=== PATIENT | female | born 1990 | race Hispanic/Latino ===

== ENCOUNTER 2018-12-21 08:21 | Emergency (ER) | payer SELFPAY ==
--- NOTE | 2018-12-21 08:23 | ED.GENADULT ---
HPI - General Adult General Chief complaint: Abdominal Pain Stated complaint: stomach pain into back,vomiting,black stool Time Seen by Provider: 12/21/18 08:22 Source: patient Mode of arrival: Ambulatory Limitations: no limitations History of Present Illness HPI narrative: 28-year-old female here for evaluation of multiple symptoms. She states that for the past 10 years she has woken up with nausea and vomiting. She also states that over the past day or so she now has lower back pain and also had some blood streaked in her vomit yesterday and some dark-colored stools. States she has had this in the past but not recently. Has never had a colonoscopy or an endoscopy. States that she has talk with her primary doctor has been started on omeprazole however she no longer takes this medication because she states that did not help very much with her symptoms. Her primary doctor who has seen her in the past for this has since retired. She is not establish care with a new provider. No prior abdominal surgeries. States she did have some vomiting this morning. No vaginal bleeding. No urinary symptoms. Related Data Previous Rx's Medication Instructions Recorded betamethasone dipropionate 0.05 % 1 applictn TOP BID #15 gram 11/14/17 topical ointment Allergies Allergy/AdvReac Type Severity Reaction Status Date / Time No Known Drug Allergies Allergy Verified 11/14/17 10:08 Review of Systems Constitutional Constitutional: Denies fatigue and Denies fever(s) Cardiovascular Cardiovascular: Denies chest pain and Denies dyspnea Respiratory Respiratory: Denies dyspnea Gastrointestinal Gastrointestinal: Reports abdominal pain, Reports diarrhea, Reports nausea and Reports vomiting Comments: Dark colored stool Genitourinary Genitourinary: Denies dysuria and Denies pelvic pain Musculoskeletal Musculoskeletal: Reports back pain (Lower back pain), Denies myalgias and Denies arthralgias Integumentary/Breasts Skin/Breast: Denies lesions and Denies rash Neurologic Neurologic: Denies behavioral changes Psychiatric Psychiatric: Denies behavioral changes Endocrine Endocrine: Denies fatigue Hematologic/Lymphatic Hematologic/Lymphatic: Denies easy bleeding and Denies easy bruising PFSH Medical History Folliculitis (Inactive) Social History Smoking Status: Current some day smoker Social History Smoking Status: Current some day smoker Exam Initial Vital Signs Initial Vital Signs: Vital Signs Temperature 97.9 F 12/21/18 08:27 Pulse Rate 78 12/21/18 08:27 Respiratory Rate 16 12/21/18 08:27 Blood Pressure 128/79 12/21/18 08:27 Pulse Oximetry 97 12/21/18 08:27 Const General: cooperative, comfortable, well developed and well groomed Orientation: alert, awake and oriented x3 HENMT Head: normal to inspection and normocephalic Resp Effort & Inspection: normal respiratory effort Auscultation: clear to auscultation bilaterally Cardio Rate: regular rate Rhythm: regular rhythm GI Inspection: non-distended Palpation: soft, No firm and tender (Lower abdomen) Rectal Exam: visual inspection normal, normal sphincter tone and heme negative stool Back/Spine/Pelvis Back: No CVA tenderness Skin Lesions: no lesions Rashes: no rashes Neuro General: alert and awake Cognition: normal cognition Speech: speech normal Motor: muscle tone normal throughout Extrem General: capillary refill normal and No edema Psych Appearance: grossly normal and well kempt Course Orders Ordered: ED Orders 12/21/18 08:48 CT abdomen pelvis w con Stat Urine Microscopic Stat 12/21/18 08:50 Complete Blood Count AUTO DIFF Stat Comprehensive Metabolic Panel Stat Lipase Stat Partial Thromboplastin Time Stat Prothrombin Time INR Stat Discontinued Medications Sodium Chloride (Normal Saline 0.9%) 1,000 mls @ 1,000 mls/hr IV BOLUS ONE Stop: 12/21/18 09:31 Last Infusion: 12/21/18 09:56 Dose: 0 mls/hr Documented by: Admin: 12/21/18 08:46 Dose: 1,000 mls/hr Documented by: FRANCA Pantoprazole Sodium (Protonix) 40 mg IV NOW ONE Stop: 12/21/18 08:33 Last Admin: 12/21/18 08:46 Dose: 40 mg Documented by: FRANCA Vital Signs Vital signs: Vital Signs - 8 hr 12/21/18 08:27 12/21/18 09:29 Temperature 97.9 F Pulse Rate 78 62 Respiratory Rate 16 16 Blood Pressure 128/79 Blood Pressure [Left Arm] 117/85 Pulse Oximetry 97 100 Medical Decision Making Lab Data Lab results reviewed: Yes I reviewed the patient's lab results. Result diagrams: 12/21/18 08:50 12/21/18 08:50 Labs: Lab Results 12/21/18 12/21/18 12/21/18 Range/Units 08:48 08:50 08:50 WBC 7.6 (4.5-11.0) X10^3/uL RBC 4.61 (4.0-5.2) X10^6/uL Hgb 14.9 (12.0-16.0) g/dL Hct 43.3 (36-46) % MCV 94.0 (80-100) fL MCH 32.3 (26-34) PG MCHC 34.4 (30-36) % RDW 12.8 (11.6-14.8) % Plt Count 275 (150-400) X10^3/uL Neut % (Auto) 63.1 (50-75) % Lymph % (Auto) 24.8 L (25-40) % Gem % (Auto) 10.6 (3-14) % Eos % (Auto) 1.2 L (2-4) % Baso % (Auto) 0.3 (0-2) % Neut # (Auto) 4800 (3743-1991) /uL Lymph # (Auto) 1900 (0659-2694) /uL Gem # (Auto) 800 (0-900) /uL Eos # (Auto) 100 (0-450) /uL Baso # (Auto) 0 (0-100) /uL PT 11.9 (10.1-12.7) SECONDS INR 1.0 (0.9-1.3) APTT 39 H (26.4-36.2) SECONDS Sodium (137-145) mmol/L Potassium (3.4-5.1) mmol/L Chloride (98-107) mmol/L Carbon Dioxide (22-32) mmol/L BUN (7-17) mg/dL Creatinine (0.52-1.04) mg/dL Estimated GFR (>60) mL/min BUN/Creatinine Ratio (6-22) Glucose (70-100) mg/dL Calcium (8.4-10.2) mg/dL Total Bilirubin (0.2-1.3) mg/dL AST (14-36) IU/L ALT (9-52) IU/L Alkaline Phosphatase (38-126) U/L Total Protein (6.3-8.2) g/dL Albumin (3.5-5.0) g/dL Globulin (1.7-4.1) g/dL Albumin/Globulin Ratio (1.0-2.8) Lipase (23-300) U/L Urine RBC 1-5/hpf (0-5/HPF) Urine WBC 0-1/hpf (0-5/HPF) Ur Squamous Epith Cells 5-10 /hpf H (0-5/HPF) Urine Bacteria Few (2-10) H (None) Urine Mucus 1+ H (Negative) Ur Culture Indicated? Cult not indicated 12/21/18 Range/Units 08:50 WBC (4.5-11.0) X10^3/uL RBC (4.0-5.2) X10^6/uL Hgb (12.0-16.0) g/dL Hct (36-46) % MCV (80-100) fL MCH (26-34) PG MCHC (30-36) % RDW (11.6-14.8) % Plt Count (150-400) X10^3/uL Neut % (Auto) (50-75) % Lymph % (Auto) (25-40) % Gem % (Auto) (3-14) % Eos % (Auto) (2-4) % Baso % (Auto) (0-2) % Neut # (Auto) (2448-2283) /uL Lymph # (Auto) (8745-7713) /uL Gem # (Auto) (0-900) /uL Eos # (Auto) (0-450) /uL Baso # (Auto) (0-100) /uL PT (10.1-12.7) SECONDS INR (0.9-1.3) APTT (26.4-36.2) SECONDS Sodium 141 (137-145) mmol/L Potassium 3.9 (3.4-5.1) mmol/L Chloride 103 (98-107) mmol/L Carbon Dioxide 28 (22-32) mmol/L BUN 9 (7-17) mg/dL Creatinine 0.60 (0.52-1.04) mg/dL Estimated GFR > 60.0 (>60) mL/min BUN/Creatinine Ratio 15.0 (6-22) Glucose 104 H (70-100) mg/dL Calcium 9.6 (8.4-10.2) mg/dL Total Bilirubin 0.6 (0.2-1.3) mg/dL AST 75 H (14-36) IU/L ALT 145 H (9-52) IU/L Alkaline Phosphatase 93 (38-126) U/L Total Protein 7.3 (6.3-8.2) g/dL Albumin 4.5 (3.5-5.0) g/dL Globulin 2.8 (1.7-4.1) g/dL Albumin/Globulin Ratio 1.6 (1.0-2.8) Lipase 36 (23-300) U/L Urine RBC (0-5/HPF) Urine WBC (0-5/HPF) Ur Squamous Epith Cells (0-5/HPF) Urine Bacteria (None) Urine Mucus (Negative) Ur Culture Indicated? Point of Care Testing Test Results Negative Stool Occult Blood Negative Urine Dip Bedside Urine Glucose Negative Bedside Urine Bilirubin + 1 Bedside Urine Ketone - Negative Urine Specific [place] 1.020 Bedside Urine Occult Blood - Negative Bedside Urine pH 6.0 Bedside Urine Protein + 30 Bedside Urine Urobilinogen - Negative Bedside Urine Nitrite - Negative Bedside Urine Leukocytes - Negative Esterase Point of care testing: Point of Care Testing Test Results Negative Stool Occult Blood Negative Urine Dip Bedside Urine Glucose Negative Bedside Urine Bilirubin + 1 Bedside Urine Ketone - Negative Urine Specific [place] 1.020 Bedside Urine Occult Blood - Negative Bedside Urine pH 6.0 Bedside Urine Protein + 30 Bedside Urine Urobilinogen - Negative Bedside Urine Nitrite - Negative Bedside Urine Leukocytes - Negative Esterase Imaging Data CT scan - abdomen: Radiologist's impression: [place] [address] CT Scan Report Signed Patient: Karina Mcleod [facility]#: [id number] : 1990Acct:[id number] Age/Sex: FDate of Service: 12/21/18 Loc: ED Accession Number: [id number] Procedure: CT abdomen pelvis w con Ordering Provider: Azam Sanders D.O. PROCEDURE: CT ABDOMEN PELVIS W CON INDICATIONS: Lower abd pain with rectal bleeding TECHNIQUE: After the administration of oral and intravenous contrast, 5 mm thick sections acquired from the diaphragms to the symphysis. 5 mm thick coronal and sagittal reformats were performed. For radiation dose reduction, the following was used: automated exposure control, adjustment of mA and/or kV according to patient size. COMPARISON: None. FINDINGS: Image quality: Diagnostic. ABDOMEN: Lung bases: Lung bases are clear. Heart size is normal. Solid organs: The liver is profoundly hypodense when compared to the spleen. Areas of normal density appear to be present within the region of the gallbladder fossa. No definable liver lesion is appreciated. The portal and hepatic veins appear to be patent. There is no intrahepatic or extrahepatic biliary dilatation. The gallbladder is not inflamed. The spleen and adrenals are within normal limits. The pancreas is unremarkable. Both kidneys are normal in size. There is no hydronephrosis or definite nephrolithiasis. Peritoneum and bowel: The stomach and duodenum are within normal limits. The small bowel loops are nondilated. Moderate thickening involving the wall of the terminal ileum and proximal colon are present. There may be additional areas of mild wall thickening involving other portions of the colon. No bowel obstruction is identified. The appendix is measuring within the upper limits of normal for size at approximately 6-7 mm. There is edema identified within the mesentery of the ileocecal region. A small amount free fluid within the right paracolic gutter is present. There is no loculated fluid collection or free air. Nodes and vessels: No retroperitoneal or mesenteric adenopathy. The rectum and multiple similar sized subcentimeter ileocolic lymph nodes are incidentally noted. Aorta and inferior vena cava are normal in caliber. Bones: No acute fracture or suspicious osseous lesion is evident. PELVIS: Genitourinary: Bladder wall thickness is normal. The uterus is normal in size. The ovaries are slightly prominent bilaterally without a large cystic lesion evident. Miscellaneous: No inguinal hernias or adenopathy. A small amount of free fluid is seen within the pelvis. There is no loculated fluid collection or free air. Bones: No suspicious bony lesions. No acute pelvic fracture is evident. IMPRESSION: 1. Mild right lower quadrant mesenteric edema probably is related to an inflammatory or infectious process involving the terminal ileum and adjacent proximal colon, such as infectious ileocolitis versus Crohn's disease/ulcerative colitis. The possibility of superimposed early appendicitis is difficult to exclude. Please correlate clinically. 2. No bowel obstruction. 3. Prominent hepatic steatosis. 4. Nonspecific prominence of the ovaries without a large cystic or solid lesion. Dictated by: Héctor Borrego M.D. on 12/21/2018 at 8:49 Approved by: Héctor Borrego M.D. on 12/21/2018 at 8:54 [facility] Narrative Medical decision making narrative: Patient with no surgical findings on the CT scan. She has never had a colonoscopy which given the CT scan findings is warranted in this case. Do not feel that this needs to happen emergently. She is Hemoccult negative. She is stable. His relatively benign abdominal exam. No indication for antibiotics. Will hold on further workup for now. Patient was informed that she should make contact with her new primary provider to get an EGD and a colonoscopy. She is going to start on Zantac. She was given return precautions and follow-up instructions. She expressed understanding and agreement plan. Discharge Plan Departure Patient Disposition: Home Clinical Impression: Abdominal pain Qualifiers: Abdominal location: lower abdomen, unspecified Qualified Code(s): R10.30 - Lower abdominal pain, unspecified Instructions: DI for Abdominal Pain-Adult Activity Restrictions/Additional Instructions: I recommend that today you contact the [facility] at [phone] to establish care with a new provider. If for some reason they are unable to see you can contact [phone] help you establish another primary provider here in the area. I recommend that you start taking Zantac or the generic version this medication. You can buy this [id number]. You do need further workup to include possibly a endoscopy and colonoscopy. Return to the emergency department for any new symptoms. Prescriptions: No Action betamethasone dipropionate 0.05 % ointment 1 applictn TOP BID Qty: 15 RF: 0
[2018-12-21 08:27] VITALS: BP 128/79; PULSE 78; RESP 16; TEMP 36.6; O2SAT 97; BMI 31.3
[2018-12-21] MEDS: SODIUM CHLORIDE 0.9% 1,000 ML 1000 ML IV (08:46)
[2018-12-21] MEDS: PANTOPRAZOLE 40 MG VIAL IV (08:46)
--- NOTE | 2018-12-21 08:48 | DI.CT.S_ITS ---
PROCEDURE: CT ABDOMEN PELVIS W CON INDICATIONS: Lower abd pain with rectal bleeding TECHNIQUE: After the administration of oral and intravenous contrast, 5 mm thick sections acquired from the diaphragms to the symphysis. 5 mm thick coronal and sagittal reformats were performed. For radiation dose reduction, the following was used: automated exposure control, adjustment of mA and/or kV according to patient size. COMPARISON: None. FINDINGS: Image quality: Diagnostic. ABDOMEN: Lung bases: Lung bases are clear. Heart size is normal. Solid organs: The liver is profoundly hypodense when compared to the spleen. Areas of normal density appear to be present within the region of the gallbladder fossa. No definable liver lesion is appreciated. The portal and hepatic veins appear to be patent. There is no intrahepatic or extrahepatic biliary dilatation. The gallbladder is not inflamed. The spleen and adrenals are within normal limits. The pancreas is unremarkable. Both kidneys are normal in size. There is no hydronephrosis or definite nephrolithiasis. Peritoneum and bowel: The stomach and duodenum are within normal limits. The small bowel loops are nondilated. Moderate thickening involving the wall of the terminal ileum and proximal colon are present. There may be additional areas of mild wall thickening involving other portions of the colon. No bowel obstruction is identified. The appendix is measuring within the upper limits of normal for size at approximately 6-7 mm. There is edema identified within the mesentery of the ileocecal region. A small amount free fluid within the right paracolic gutter is present. There is no loculated fluid collection or free air. Nodes and vessels: No retroperitoneal or mesenteric adenopathy. The rectum and multiple similar sized subcentimeter ileocolic lymph nodes are incidentally noted. Aorta and inferior vena cava are normal in caliber. Bones: No acute fracture or suspicious osseous lesion is evident. PELVIS: Genitourinary: Bladder wall thickness is normal. The uterus is normal in size. The ovaries are slightly prominent bilaterally without a large cystic lesion evident. Miscellaneous: No inguinal hernias or adenopathy. A small amount of free fluid is seen within the pelvis. There is no loculated fluid collection or free air. Bones: No suspicious bony lesions. No acute pelvic fracture is evident. IMPRESSION: 1. Mild right lower quadrant mesenteric edema probably is related to an inflammatory or infectious process involving the terminal ileum and adjacent proximal colon, such as infectious ileocolitis versus Crohn's disease/ulcerative colitis. The possibility of superimposed early appendicitis is difficult to exclude. Please correlate clinically. 2. No bowel obstruction. 3. Prominent hepatic steatosis. 4. Nonspecific prominence of the ovaries without a large cystic or solid lesion. Dictated by: Héctor Borrego M.D. on 12/21/2018 at 8:49 Approved by: Héctor Borrego M.D. on 12/21/2018 at 8:54
[2018-12-21 08:58] LABS: Bacteria Urine Few (2-10); Culture Indicated Urine Cult Not Indicated; Mucus Urine 1+ (Negative); RBC Urine 1-5/HPF (0-5/HPF); Squamous Epithelial Cell Urine 5-10 /HPF (0-5/HPF); WBC Urine 0-1/HPF (0-5/HPF)
[2018-12-21 09:14] LABS: Add Manual Diff / Slide Review NO; Basophils Absolute Auto 0 /uL (0-100); Basophils Percent Auto 0.3 % (0-2); Eosinophils Absolute Auto 100 /uL (0-450); Eosinophils Percent Auto 1.2 % (2-4); Hematocrit 43.3 % (36-46); Hemoglobin 14.9 g/dL (12.0-16.0); Lymphocytes Absolute Auto 1900 /uL (1100-4500); Lymphocytes Percent Auto 24.8 % (25-40); Mean Corpuscular HGB Conc 34.4 % (30-36); Mean Corpuscular Hemoglobin 32.3 PG (26-34); Monocytes Absolute Auto 800 /uL (0-900); Monocytes Percent Auto 10.6 % (3-14); Neutrophils Absolute Auto 4800 /uL (1500-7000); Neutrophils Percent Auto 63.1 % (50-75); Platelet Count 275 X10^3/uL (150-400); Red Blood Cell Count 4.61 X10^6/uL (4.0-5.2); Red Cell Distribution Width 12.8 % (11.6-14.8); White Blood Cell Count 7.6 X10^3/uL (4.5-11.0)
[2018-12-21 09:17] LABS: Prothrombin Time 11.9 SECONDS (10.1-12.7)
[2018-12-21 09:19] LABS: PTT Partial Thromboplastin Tim 39 SECONDS (26.4-36.2)
[2018-12-21 09:21] LABS: Alanine Aminotransferase 145 IU/L (9-52); Albumin 4.5 g/dL (3.5-5.0); Albumin Globulin Ratio 1.6 (1.0-2.8); Alkaline Phosphatase 93 U/L (38-126); Aspartate Aminotransferase 75 IU/L (14-36); Bilirubin Total 0.6 mg/dL (0.2-1.3); Blood Urea Nitrogen 9 mg/dL (7-17); Calcium 9.6 mg/dL (8.4-10.2); Carbon Dioxide 28 mmol/L (22-32); Chloride 103 mmol/L (98-107); Estimated Glomerular Filt Rate > 60.0 mL/min (>60); Globulin 2.8 g/dL (1.7-4.1); Glucose 104 mg/dL (70-100); HEMOLYSIS < 15 (0-50); Lipase 36 U/L (23-300); Potassium 3.9 mmol/L (3.4-5.1); Sodium 141 mmol/L (137-145); Total Protein 7.3 g/dL (6.3-8.2)
[2018-12-21 09:29] VITALS: BP 117/85; PULSE 62; RESP 16; O2SAT 100
[2018-12-21 11:05] VITALS: BP 140/85; PULSE 61; RESP 16
== END 2018-12-21 11:05 | disposition home or self-care (01) ==
PROVIDERS: Emergency Provider Emergency Medicine
DX: R10.30 Lower abdominal pain, unspecified (principal); K62.5 Hemorrhage of anus and rectum
CPT/HCPCS: 36415; 74177; 80053; 81003; 81015; 81025; 82272; 83690; 85025; 85610; 85730; 96361; 96374; 99283; 99285; C9113; Q9967

== ENCOUNTER 2019-01-12 12:11 | Emergency (ER) | payer OTHER, SELFPAY ==
--- NOTE | 2019-01-12 12:55 | DI.RAD.S_ITS ---
PROCEDURE: XR KNEE RT 3V INDICATIONS: twisted injury 2 days ago TECHNIQUE: 3 views of the knee were acquired. COMPARISON: None. FINDINGS: Bones: No fractures or dislocations. No suspicious bony lesions. Soft tissues: No joint effusion. No suspicious soft tissue calcifications. IMPRESSION: No acute bony abnormality of the right knee. Dictated by: Fernando Lovett M.D. on 01/12/2019 at 13:22 Approved by: Fernando Lovett M.D. on 01/12/2019 at 13:23
[2019-01-12 12:57] VITALS: BP 140/80; PULSE 66; RESP 13; TEMP 36.2; O2SAT 98
--- NOTE | 2019-01-12 13:11 | PC.NURSE ---
pt seen in waiting room at 1220.
--- NOTE | 2019-01-12 13:30 | ED_ITS ---
HPI - Extremity Injury (Lower) <SCOTTIE Metcalf - Last Filed: 01/12/19 23:25> General Chief Complaint: Extremity Injury, Lower Stated Complaint: Fell at work twisted right knee 2 days ago Time Seen by Provider: 01/12/19 13:16 Source: patient Mode of arrival: Ambulatory Limitations: no limitations History of Present Illness HPI Narrative: This is a 28-year-old female, occasional smoker, who presents with significant other with chief complain of right knee pain, lateral and medial to patella. 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 While she was falling she shifted right knee to right and left laterally with all her weight bearing on affected leg. Patient denies falling right on to affected knee. Patient has been using ice pack and knee brace for comfort which has been mildly improving but without this patient reports pain is about 8/10 and pain radiates to above and below to knee. Patient reports ambulation increases her pain but is able to bear weight and has a limping gait. Patient denies injuring the scene knee in the past and injuring her head or any other areas. Patient is not on anticoa gulants at this time. Related Data Previous Rx's Medication Instructions Recorded betamethasone dipropionate 0.05 % 1 applictn TOP BID #15 gram 11/14/17 topical ointment Allergies Allergy/AdvReac Type Severity Reaction Status Date / Time No Known Drug Allergies Allergy Verified 11/14/17 10:08 Review of Systems <SCOTTIE Metcalf - Last Filed: 01/12/19 23:25> Review of Systems Narrative: General: Denies fever, chills, fatigue, malaise, sweats. HEENT: Denies sinus pain, ear pain, sore throat, difficulty swallowing, dizziness. Respiratory: Denies dyspnea, cough, wheezing, hemoptysis, sputum. Cardiovascular: Denies chest pain, palpitations, orthopnea, edema. Gastrointestinal: Denies nausea, vomiting, abdominal pain, diarrhea, constipation, melena. : Denies dysuria, frequency, incontinence, hematuria, urinary retention. Musculoskeletal: See HPI Skin: Denies rash, skin lesions, or other. Neurologic: Denies weakness, headache, numbness, change in speech, confusion, seizures, incoordination. Psychiatric: No concerning psychosocial issues. 12-point review of systems is negative except for those stated above. Patient History <SCOTTIE Metcalf - Last Filed: 01/12/19 23:25> Medical History Folliculitis (Inactive) Social History Smoking Status: Current some day smoker Social History Smoking Status: Current some day smoker alcohol intake frequency: 0-2 drinks per day Substance Use Type: marijuana Exam <SCOTTIE Metcalf - Last Filed: 01/12/19 23:25> Narrative Exam Narrative: General appearance: well developed, well nourished, in no acute distress. Head: normocephalic, atraumatic, no scalp lesions, non-tender. Eye: pupil equal, round. EOMI. Nose: nares patent. Oral: mucosa moist. Neck/Thyroid: neck supple, full range of motion, no visible masses. Skin: no suspicious rashes, lesions over visible areas. Warm and dry. Heart: no clubbing, no cyanosis, no edema. Lungs: Breathing even and unlabored. No stridor. No accessory muscles used. Chest: normal shape and expansion. Abdomen: non-obese, non-distended. Neurologic: alert and oriented. Cognitive exam, SEPARATOR TENDER and PNS grossly intact on informal exam. Psych: good eye contact, normal affect. Initial Vital Signs Initial Vital Signs: Vital Signs Temperature 97.2 F L 01/12/19 12:57 Pulse Rate 66 01/12/19 12:57 Respiratory Rate 13 01/12/19 12:57 Blood Pressure 140/80 01/12/19 12:57 Pulse Oximetry 98 01/12/19 12:57 Extrem Right lower extremity: hip/thigh Details: normal to inspection; no tenderness, knee Details: abnormal to inspection, tenderness, swelling Location: of the patella (Around patella), abnormal ROM Details: pain with passive ROM during Details: in extension and in flexion, knee ligament exam abnormal Details: anterior drawer test normal, posterior drawer test normal and Scarlett's test normal and ecchymosis (light on patella and around ); no abrasions, no lacerations, no crepitus and no unusual warmth, ankle Details: normal to inspection; no tenderness and foot Details: normal to inspection, vascular exam Details: dorsalis pedis pulse present and motor-sensory exam Details: light- touch normal; no tenderness <DO Cammie Becerra Last Filed: 01/16/19 18:17> Initial Vital Signs Initial Vital Signs: Vital Signs Temperature 97.2 F L 01/12/19 12:57 Pulse Rate 66 01/12/19 12:57 Respiratory Rate 13 01/12/19 12:57 Blood Pressure 140/80 01/12/19 12:57 Pulse Oximetry 98 01/12/19 12:57 Procedures <SCOTTIE Metcalf - Last Filed: 01/12/19 23:25> Orthopedic Splinting/Casting Injury #1: Side: right Lower Extremity Injury Location: knee Lower Extremity Immobilizer: knee immobilizer Other Orthopedic Equipment: crutches Post splinting neuro exam: intact Post splinting vascular exam: intact Placed by: Nursing Course <SCOTTIE Metcalf - Last Filed: 01/12/19 23:25> Orders Ordered: Discontinued Medications Acetaminophen (Tylenol) 975 mg PO NOW ONE Stop: 01/12/19 13:29 Last Admin: 01/12/19 13:56 Dose: 975 mg Documented by: KAYLA Vital Signs Vital signs: Vital Signs - 8 hr 01/12/19 12:57 Temperature 97.2 F L Pulse Rate 66 Respiratory Rate 13 Blood Pressure 140/80 Pulse Oximetry 98 <Colette Tyson DO - Last Filed: 01/16/19 18:17> Orders Ordered: Discontinued Medications Acetaminophen (Tylenol) 975 mg PO NOW ONE Stop: 01/12/19 13:29 Last Admin: 01/12/19 13:56 Dose: 975 mg Documented by: STOBEZina Vital Signs Vital signs: Vital Signs - 8 hr 01/12/19 12:57 Temperature 97.2 F L Pulse Rate 66 Respiratory Rate 13 Blood Pressure 140/80 Pulse Oximetry 98 MDM - Extremity Injury (Lower) <SCOTTIE Metcalf Last Filed: 01/12/19 23:25> Differential Diagnosis Differential diagnosis: Likely other (Knee sprain/strain, knee fracture) Medical Records Attestation: I reviewed the patient's medical records. Imaging Data XR-Knee RT: Radiologist's impression: [address] [address] XRay Report Signed Patient: Karina Mcleod [facility]#: [id number] : 1990Acct:[id number] Age/Sex: 28 / FDate of Service: 01/12/19 Loc: ED Accession Number: [id number] Procedure: XR knee RT 3V Ordering Provider: Colette Tyson D.O. PROCEDURE: XR KNEE RT 3V INDICATIONS: twisted injury 2 days ago TECHNIQUE: 3 views of the knee were acquired. COMPARISON: None. FINDINGS: Bones: No fractures or dislocations. No suspicious bony lesions. Soft tissues: No joint effusion. No suspicious soft tissue calcifications. IMPRESSION: No acute bony abnormality of the right knee. Dictated by: Fernando Lovett M.D. on 01/12/2019 at 13:22 Approved by: Fernando Lovett M.D. on 01/12/2019 at 13:23 [facility] Narrative Medical decision making narrative: This is a 28 year female came in to ED after injury to her right knee 2 nights ago at work after she slipped and fall. She reports her knee shifted to the opposite side of her body back and forth for she was falling. Physical exam exhibited mild ecchymosis, edema around the patella. She is able to bear weight but with pain. Neurovascular exam was intact. She was able to move her toes. X-ray shows no acute findings. Knee immobilizer was applied on right knee for comfort and rest and a set of crutches was provided. Crutch teaching was done by nursing staff and patient was able to demonstrate back on proper use. Required work injury document has completed. Return precautions were discussed with the patient and a referral to [facility] orthopedist provided. Patient advised to use [id number] Tylenol and or Motrin as needed for discomfort along RICE therapy. No further questions were expressed and patient agrees with treatment plan. Discharge Plan Departure Patient Disposition: Home Clinical Impression: Right knee sprain Qualifiers: Encounter type: initial encounter Involved ligament of knee: unspecified ligament Qualified Code(s): S83.91XA - Sprain of unspecified site of right knee, initial encounter Discharge Date/Time: 01/12/19 15:16 Instructions: DI for Knee Sprain Activity Restrictions/Additional Instructions: You have been diagnosed with [right knee sprain. X-ray test today does not show any acute findings such as fracture, dislocation or bony lesions.]. What to do: *Take your medications as directed. Take [id number] Tylenol and or Motrin as needed for discomfort. Tylenol up to 4000 mg in 24 hour. Ibuprofen 400 mg to 800 mg 3 to 4 times a day with food for pain and inflammation. *Follow up with your primary care provider in 2-3 days, call for an appointment. Please follow up with Orthopedic group if her pain persists. You may need a referral to physical therapist if the pain persists. Let them know you were seen in the ED and that we asked you to be seen in follow up. *Return to ED if you have any new, worsening, or concerning symptoms, such as [worsening pain, tingling numbness, weakness to affected limb, chest pain, breathing difficulty, unable to tolerate fluids, or any acute concerns]. Prescriptions: No Action betamethasone dipropionate 0.05 % ointment 1 applictn TOP BID Qty: 15 RF: 0 Referrals: [facility] [Provider Group] Stand Alone Forms: Work Release Note
[2019-01-12] MEDS: ACETAMINOPHEN 325 MG TABLET 975 MG PO (13:56)
[2019-01-12 15:16] VITALS: RESP 16
== END 2019-01-12 15:16 | disposition home or self-care (01) ==
PROVIDERS: Emergency Provider Nurse Practitioner Family
DX: S83.91XA Sprain of unspecified site of right knee, initial encounter (principal); W18.30XA Fall on same level, unspecified, initial encounter; Y99.0 Civilian activity done for income or pay
CPT/HCPCS: 29515; 29530; 73562; 99283

== ENCOUNTER 2020-03-08 17:58 | Emergency (ER) | payer OTHER, MEDICAID, SELFPAY ==
[2020-03-08 18:00] VITALS: BP 132/83; PULSE 108; RESP 18; TEMP 36.9; O2SAT 99; BMI 28.3
--- NOTE | 2020-03-08 18:35 | ED.NEUROSD ---
HPI - Neuro Symptoms/Deficit General Chief Complaint: Neuro Symptoms/Deficit Stated Complaint: right side facial numbness for past week Time Seen by Provider: 03/08/20 18:07 Source: patient Mode of arrival: Ambulatory Limitations: no limitations History of Present Illness HPI Narrative: Patient is a 29-year-old healthy female who presents with right facial numbness and drooping ongoing for 1 week. She says she got severe headache a week ago it started behind her right ear went up behind her eye she took ibuprofen and went to bed she has not had a headache since she woke up and has right-sided facial droop change in taste on the right side only inability to close her eye and this has been ongoing. She denies any other numbness tingling or weakness no difficulty speaking. Onset (ago): week(s) On Anticoagulants: No Related Data Previous Rx's Medication Instructions Recorded betamethasone dipropionate 0.05 % 1 applictn TOP BID #15 gram 11/14/17 topical ointment polyvinyl alcohol [Artificial 2 drp EYE-RIGHT Q2HRWA #15 ml 03/08/20 Tears (polyvin alc)] prednisone 60 mg PO DAILY #10 tab 03/08/20 valacyclovir 1,000 mg PO Q8H 7 Days #21 tab 03/08/20 Allergies Allergy/AdvReac Type Severity Reaction Status Date / Time No Known Drug Allergies Allergy Verified 11/14/17 10:08 Review of Systems Review of Systems ROS Unobtainable: All systems reviewed & are unremarkable except as noted in HPI and below Constitutional Constitutional: Denies chills, Denies fever(s), Denies lethargy and Denies weakness Eyes Eyes: Reports as per HPI ENT Ears, Nose, Mouth, and Throat: Denies dizziness Cardiovascular Cardiovascular: Denies chest pain, Denies syncope, Denies irregular heart rhythm, Denies lightheadedness, Denies palpitations, Denies dyspnea, Denies dyspnea on exertion and Denies orthopnea Respiratory Respiratory: Denies cough, Denies dyspnea, Denies dyspnea on exertion and Denies wheezing Musculoskeletal Musculoskeletal: Denies myalgias, Denies muscle cramps and Denies muscle weakness Integumentary/Breasts Skin/Breast: Denies pruritus, Denies erythema, Denies rash and Denies wounds Neurologic Neurologic: Reports as per HPI, Denies confusion, Denies dizziness, Denies syncope and Denies weakness Psychiatric Psychiatric: Denies confusion Endocrine Endocrine: Denies palpitations Allergic/Immunologic Allergic/Immunologic: Denies wheezing Patient History Medical History (Updated 03/08/20 @ 18:45 by Colette Tyson DO) Folliculitis Social History Smoking Status: Current some day smoker Smoking Status: Current some day smoker alcohol intake frequency: 0-2 drinks per day Substance Use Type: marijuana Exam Initial Vital Signs Initial Vital Signs: Vital Signs Temperature 98.5 F 03/08/20 18:00 Pulse Rate 108 H 03/08/20 18:00 Respiratory Rate 18 03/08/20 18:00 Blood Pressure 132/83 03/08/20 18:00 Pulse Oximetry 99 03/08/20 18:00 GENERAL: Well-appearing, well-nourished and in no acute distress. HEENT: Head atraumatic, inability to close right eye at all, right forehead unable to move, right-sided facial droop CARDIOVASCULAR: Regular rate and rhythm without murmurs, rubs or gallops. RESPIRATORY: Breath sounds equal bilaterally, no wheezes rales or rhonchi. ABDOMEN: Soft, nontender. Normoactive bowel sounds all 4 quadrants. No guarding or rebound. EXTREMITIES: Normal range of motion, no clubbing or edema. Neurovascularly intact NEUROLOGICAL: Alert and oriented x4.Normal gait and speech. Cranial nerves II through XII grossly intact. Good [id number]-[id number], good ugxj-[id number], strength equal bilaterally, no dysarthria or aphasia, sensation in tact to soft touch bilaterally, no visual changes, right facial droop SKIN: Warm, dry, no laceration, no petechiae, no rashes or lesions. Scores NIH Stroke Scale Level of Conciousness: Alert, keenly responsive Ask month/age: Answers both questions correctly. Open/close eyes, close hand: Performs both tasks correctly Best gaze horizontal: Normal Visual cornejo: No visual loss Facial palsy: Complete paralysis, absence of movement in the upper and lower face Left arm drift: No drift for full 10 sec Right arm drift: No drift for full 10 sec Left leg drift: No drift for full 5 sec Right leg drift: No drift for full 5 sec Limb ataxia: Absent Sensory on face/arms/legs: Normal, no sensory loss Best language: No aphasia, normal Dysarthria: Normal Extinction or inattention: No abnormality Total NIH Stroke scale score: 3 Course Orders Ordered: Discontinued Medications Erythromycin (Erythromycin Ophth 1 Gm Oint) 1 applic EYE-RIGHT NOW ONE Stop: 03/08/20 18:51 Last Admin: 03/08/20 18:57 Dose: 1 applic Documented by: MMINOR Vital Signs Vital signs: Vital Signs - 8 hr 03/08/20 18:00 Temperature 98.5 F Pulse Rate 108 H Respiratory Rate 18 Blood Pressure 132/83 Pulse Oximetry 99 MDM - Neuro Symptoms/Deficit MDM Narrative Medical decision making narrative: Patient has fairly pronounced Etienne's palsy is ongoing for 1 week no persistent headache or focal deficits. At this time no need for imaging. He is given an eye patch and erythromycin ointment along with prescription for artificial tears Valcyte clear and prednisone. Recommend outpatient follow-up. She overall appears well and understands that this may take some time to heal and she may have permanent deficit. Discharge Plan Departure Patient Disposition: Home Clinical Impression: Etienne's palsy Instructions: DI for [place] Palsy Activity Restrictions/Additional Instructions: *You have been diagnosed with Etienne's palsy *What to do: Keep eye patch on at all times, or in till able to close eye. place artificial tears in right eye multiple times a day. You do have quite a severe case hopefully this does improve for you but it will take time *Continue to take medications as directed--> [facility] [place] Prednisone 60 mg once a day for 7 days Valacyclovir 1000 mg 3 times daily for 1 week *Follow up with your primary care provider in 2-3 days *Return to ER if you should have [or] any new, worsening or concerning symptoms Prescriptions: New prednisone 20 mg tablet 60 mg PO DAILY Qty: 10 RF: 0 valacyclovir 1 gram tablet 1,000 mg PO Q8H 7 Days Qty: 21 RF: 0 polyvinyl alcohol [Artificial Tears (polyvin alc)] 1.4 % drops 2 drp EYE-RIGHT Q2HRWA Qty: 15 RF: 1 No Action betamethasone dipropionate 0.05 % ointment 1 applictn TOP BID Qty: 15 RF: 0 Referrals: Thania Ibarra MD [Physician] - Douglas Ralph MD [Physician] - Estella Christian MD [Physician] -
[2020-03-08] MEDS: ERYTHROMYCIN OPHTH 1 GM OINT 1 APPLIC EYE-RIGHT (18:57)
--- NOTE | 2020-03-08 19:06 | PC.NURSE ---
pt is here with facial numbness and inability to close R eye for extended periods of time. Pt given eye patch to wear home at discharge
== END 2020-03-08 19:07 | disposition home or self-care (01) ==
PROVIDERS: Emergency Provider Emergency Medicine
DX: G51.0 Bell's palsy (principal); R51.9 Headache, unspecified
CPT/HCPCS: 99281; 99282

== ENCOUNTER → 2020-07-06 16:37 | Outpatient (CLI) | payer OTHER, MEDICAID, SELFPAY ==
[2020-07-06 19:02] LABS: Add Manual Diff / Slide Review NO; Basophils Absolute Auto 0 /uL (0-100); Basophils Percent Auto 0.3 % (0-2); Eosinophils Absolute Auto 100 /uL (0-450); Eosinophils Percent Auto 1.2 % (2-4); Hematocrit 42.4 % (36-46); Hemoglobin 14.3 g/dL (12.0-16.0); Lymphocytes Absolute Auto 2700 /uL (1100-4500); Lymphocytes Percent Auto 27.1 % (25-40); Mean Corpuscular HGB Conc 33.7 % (30-36); Mean Corpuscular Hemoglobin 32.2 PG (26-34); Mean Corpuscular Volume 95.5 fL (80-100); Monocytes Absolute Auto 700 /uL (0-900); Monocytes Percent Auto 7.1 % (3-14); Neutrophils Absolute Auto 6400 /uL (1500-7000); Neutrophils Percent Auto 64.3 % (50-75); Platelet Count 321 X10^3/uL (150-400); Red Blood Cell Count 4.43 X10^6/uL (4.0-5.2); Red Cell Distribution Width 13.1 % (11.6-14.8); White Blood Cell Count 9.9 X10^3/uL (4.5-11.0)
[2020-07-06 19:08] LABS: Alanine Aminotransferase 63 IU/L (<35); Albumin 4.6 g/dL (3.5-5.0); Albumin Globulin Ratio 1.5 (1.0-2.8); Alkaline Phosphatase 105 U/L (38-126); Aspartate Aminotransferase 62 IU/L (14-36); BUN Creatinine Ratio 22.4 (6-22); Bilirubin Total 0.5 mg/dL (0.2-1.3); Blood Urea Nitrogen 13 mg/dL (7-17); Carbon Dioxide 30 mmol/L (22-32); Chloride 102 mmol/L (98-107); Estimated Glomerular Filt Rate > 60.0 mL/min (>60); Glucose 116 mg/dL (70-100); HEMOLYSIS < 15 (0-50); Potassium 3.8 mmol/L (3.4-5.1); Sodium 139 mmol/L (137-145); Total Protein 7.6 g/dL (6.3-8.2)
[2020-07-06 19:46] LABS: Thyroid Stimulating Hormone 0.764 uIU/mL (0.47-4.68)
[2020-07-07 01:59] LABS: Hepatitis B Surface Antigen NEGATIVE s/c (NEGATIVE)
[2020-07-07 02:19] LABS: HIV 1 & 2 Ab/Ag 4th Gen Combo NEGATIVE (NEGATIVE); Hep C Virus Ab w/Reflex Quant NEGATIVE s/c (NEGATIVE)
[2020-07-08 03:09] LABS: HSV 2 IGG AB < 0.91 index (0.00-0.90)
[2020-07-08 05:37] LABS: RPR Screen Non Reactive (Non Reactive)
[2020-07-09 00:44] LABS: HSV I/II IgM <0.91 Ratio (0.00-0.90)
== END ==
PROVIDERS: PCP Registered Nurse; Referring Provider Registered Nurse; Visit Provider Registered Nurse
DX: Z00.00 Encounter for general adult medical examination without abnormal findings (principal); Z11.3 Encounter for screening for infections with a predominantly sexual mode of transmission; F41.8 Other specified anxiety disorders
CPT/HCPCS: 36415; 80053; 84443; 85025; 86592; 86694; 86695; 86696; 86803; 87340; 87389

== ENCOUNTER 2020-10-11 17:54 | Emergency (ER) | payer OTHER, SELFPAY ==
[2020-10-11 17:58] VITALS: BP 139/78; PULSE 75; RESP 12; TEMP 36.4; O2SAT 98; BMI 28.3
--- NOTE | 2020-10-11 18:00 | DI.RAD.S_ITS ---
PROCEDURE: XR HAND LT MIN 3V INDICATIONS: smashed left hand TECHNIQUE: 3 views of the hand(s) acquired. COMPARISON: None. FINDINGS: Bones: No fractures or dislocations. Carpal bones are normally aligned. No suspicious bony lesions. Soft tissues: No suspicious soft tissue calcifications. IMPRESSION: No acute left hand fracture or dislocation. Dictated by: Vinny Veronica M.D. on 10/11/2020 at 18:15 Approved by: Vinny Veronica M.D. on 10/11/2020 at 18:16
--- NOTE | 2020-10-11 18:23 | ED.UPPEXIN ---
HPI - Extremity Injury (Upper) General Chief Complaint: Extremity Injury, Upper Stated Complaint: LEFT HAND INJURY Time Seen by Provider: 10/11/20 17:59 Source: patient Mode of arrival: Ambulatory History of Present Illness HPI narrative: 30-year-old otherwise healthy right-handed woman had her left hand caught between to freeze or doors at work yesterday about 3:00 p.m.. She is continue to experience a bit of swelling and pain. She has been icing and using ibuprofen. Today with the continued swelling slight bruising over the dorsum and some appearing over the palmar surface of the hand as well her boss asked her to come in for further evaluation. She is having no decreased sensation. Slight decreased range of motion at the risk secondary to pain the majority of the pain is through the mid hand toward the thenar eminence. Related Data Allergies Allergy/AdvReac Type Severity Reaction Status Date / Time No Known Drug Allergies Allergy Verified 11/14/17 10:08 Review of Systems Review of Systems Narrative: Pertinent positive and negative findings as per HPI Remainder of review of systems is otherwise unremarkable for Constitutional: Fevers, chills, weakness ENT: No sore throat, neck pain, ear pain CV: Chest pain, palpitations, Respiratory: Cough, wheeze, dyspnea GI: Nausea, vomiting, diarrhea, Patient History Medical History Folliculitis Physical exam Screening examination for STD (sexually transmitted disease) Family History Family/Other Cancer Social History Smoking Status: Current some day smoker Smoking Status: Current some day smoker alcohol intake frequency: 0-2 drinks per day Substance Use Type: marijuana Exam Narrative Exam Narrative: General: Alert appropriate in no acute distress Respiratory: Able to speak in full sentences, no obvious respiratory distress Skin: No obvious rashes, warm and dry Neurologic: Grossly intact no obvious asymmetries or abnormalities Psych: appropriate insight and affect, cooperative Extremity: Left hand with mild swelling to the dorsum of the hand. Some minor ecchymosis on the dorsal surface of toward the thumb and web space. There is some minor bruising appreciated on the palmar surface just over the curve of the thenar eminence. She is neurovascularly intact. There is no elbow pain or tenderness. No skin abrasions or lacerations. Initial Vital Signs Initial Vital Signs: Vital Signs Temperature 97.6 F 10/11/20 17:58 Pulse Rate 75 10/11/20 17:58 Respiratory Rate 12 10/11/20 17:58 Blood Pressure 139/78 10/11/20 17:58 Pulse Oximetry 98 10/11/20 17:58 Course Orders Ordered: ED Orders 10/11/20 18:00 XR hand LT min 3V Stat Vital Signs Vital signs: Vital Signs - 8 hr 10/11/20 17:58 Temperature 97.6 F Pulse Rate 75 Respiratory Rate 12 Blood Pressure 139/78 Pulse Oximetry 98 MDM - Extremity Injury (Upper) Medical Records Medical records narrative: 30-year-old woman who injured her left hand at work and comes in for further evaluation medical clearance. No evidence of fracture. She does have a contusion to the midportion of the left hand but is able to use it with no significant limitations or neurologic compromise. L and I paperwork is filled out. She is safe for home discharge Imaging Data xr hand: Radiologist's Impression: FINDINGS: Bones: No fractures or dislocations. Carpal bones are normally aligned. No suspicious bony lesions. Soft tissues: No suspicious soft tissue calcifications. IMPRESSION: No acute left hand fracture or dislocation. Dictated by: Vinny Veronica M.D. on 10/11/2020 at 18:15 MDM Narrative Medical decision making narrative: 30-year-old woman who injured her hand 24 hours ago while at work. Simple contusion without any overt bony injury. She is free to return to work. Will encourage continued icing and ibuprofen and Tylenol as needed for pain. Discharge Plan Departure Patient Disposition: Home Clinical Impression: Contusion of hand Qualifiers: Encounter type: initial encounter Laterality: left Qualified Code(s): S60.222A - Contusion of left hand, initial encounter Activity Restrictions/Additional Instructions: Thank you for coming in today Your hand is not broken. You definitely have a bruise deep in the middle of the hand and will notice continued bruising on the back and the palm surface. It is okay to use the hand as you can tolerate, you will not make the injury worse. Using 400 mg of ibuprofen (2 [id number] pills) and 1 Tylenol every 6 hours can be very helpful in controlling pain. Keeping the hand elevated can help with it is throbbing and icing as you have been doing is entirely appropriate I hope you heal quickly Referrals: Zaid Horn ARNP [Primary Care Provider] - Stand Alone Forms: Work Release Note
[2020-10-11 18:40] VITALS: BP 142/97; PULSE 63; RESP 14; O2SAT 100
== END 2020-10-11 18:42 | disposition home or self-care (01) ==
PROVIDERS: Emergency Provider Emergency Medicine; PCP Registered Nurse
DX: S60.222A Contusion of left hand, initial encounter (principal); W23.0XXA Caught, crushed, jammed, or pinched between moving objects, initial encounter; Y99.0 Civilian activity done for income or pay
CPT/HCPCS: 73130; 99283

== ENCOUNTER → 2021-06-11 16:08 | Outpatient (CLI) | payer OTHER, MEDICAID, SELFPAY | PROVIDERS: PCP Registered Nurse; Visit Provider Nurse Practitioner Family | DX: R30.0 Dysuria (principal) | CPT/HCPCS: 87077; 87086; 87186 ==

== ENCOUNTER 2021-06-11 20:20 | Emergency (ER) | payer OTHER, MEDICAID, SELFPAY ==
[2021-06-11 20:20] VITALS: BP 149/92; PULSE 85; RESP 18; TEMP 35.8; O2SAT 99
--- NOTE | 2021-06-11 20:49 | PC.NURSE ---
pt states she did not get her rx filled as the pharmacy closed, she has never had a uti before she is c/o left flank pain that is constant in nature
[2021-06-11 20:54] LABS: Add Manual Diff / Slide Review NO; Basophils Absolute Auto 0 /uL (0-100); Basophils Percent Auto 0.2 % (0-2); Eosinophils Absolute Auto 100 /uL (0-450); Eosinophils Percent Auto 0.5 % (2-4); Hematocrit 39.4 % (36-46); Hemoglobin 13.7 g/dL (12.0-16.0); Lymphocytes Absolute Auto 2000 /uL (1100-4500); Mean Corpuscular HGB Conc 34.8 % (30-36); Mean Corpuscular Hemoglobin 32.4 PG (26-34); Monocytes Absolute Auto 1000 /uL (0-900); Monocytes Percent Auto 7.1 % (3-14); Neutrophils Absolute Auto 11100 /uL (1500-7000); Neutrophils Percent Auto 78.2 % (50-75); Platelet Count 316 X10^3/uL (150-400); Red Blood Cell Count 4.24 X10^6/uL (4.0-5.2); Red Cell Distribution Width 12.5 % (11.6-14.8); White Blood Cell Count 14.1 X10^3/uL (4.5-11.0)
[2021-06-11 21:04] LABS: BUN Creatinine Ratio 13.6 (6-22); Blood Urea Nitrogen 8 mg/dL (7-17); Carbon Dioxide 26 mmol/L (22-32); Chloride 103 mmol/L (98-107); Estimated Glomerular Filt Rate > 60.0 mL/min (>60); Glucose 116 mg/dL (70-100); HEMOLYSIS < 15 (0-50); Potassium 3.5 mmol/L (3.4-5.1); Sodium 137 mmol/L (137-145)
--- NOTE | 2021-06-11 21:09 | ED_ITS ---
HPI - General Adult General Chief complaint: Urogenital-Female Stated complaint: KIDNEY PAIN Time Seen by Provider: 06/11/21 20:34 Source: patient Mode of arrival: Ambulatory History of Present Illness HPI narrative: Patient is a 30-year-old female. She is here for evaluation of left-sided flank/lower back discomfort. She was seen several hours ago at the walk-in clinic. Had a urinalysis performed. Was told that she had a urinary tract infection. Was prescribed Macrobid and Pyridium. 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 She states that since she was seen earlier she has had increasing lower back discomfort. She has never had a kidney stone in the past. No vaginal bleeding. No change in bowel habits. Related Data Previous Rx's Medication Instructions Recorded escitalopram oxalate 10 mg tablet 10 mg PO DAILY #30 tab 11/02/20 nitrofurantoin 100 mg PO Q12H 5 Days #10 cap 06/11/21 monohydrate/macrocrystals 100 mg capsule (Macrobid) phenazopyridine 200 mg tablet 200 mg PO TID 0 Days #6 tab 06/11/21 (Pyridium) sulfamethoxazole 800 1 tab PO Q12H 14 Days #28 tab 06/11/21 mg-trimethoprim 160 mg tablet (Bactrim DS) Allergies Allergy/AdvReac Type Severity Reaction Status Date / Time No Known Drug Allergies Allergy Verified 06/11/21 20:30 Review of Systems Gastrointestinal Gastrointestinal: Reports as per HPI and Reports system reviewed and no additional complaints, except as documented Genitourinary Genitourinary: Reports system reviewed and no additional complaints, except as documented and Reports as per HPI Musculoskeletal Musculoskeletal: Reports system reviewed and no additional complaints, except as documented and Reports as per HPI Hematologic/Lymphatic On Anticoagulants: No Patient History Medical History Folliculitis Physical exam Screening examination for STD (sexually transmitted disease) Family History Family/Other Cancer Social History Smoking Status: Current some day smoker Smoking Status: Current some day smoker alcohol intake frequency: 3 or more drinks per day Substance Use Type: marijuana Exam Initial Vital Signs Initial Vital Signs: Vital Signs Temperature 96.4 F L 06/11/21 20:20 Pulse Rate 85 06/11/21 20:20 Respiratory Rate 18 06/11/21 20:20 Blood Pressure 149/92 H 06/11/21 20:20 Pulse Oximetry 99 06/11/21 20:20 HENNE Head: normal to inspection and normocephalic Back/Spine/Pelvis Back: CVA tenderness left Skin General: no rashes or lesions noted Neuro General: patient alert, patient awake, patient oriented x3 and moves all extremities Extrem General: normal to inspection and capillary refill normal Psych Appearance: grossly normal and well kempt Course Orders Ordered: ED Orders 06/11/21 20:45 Basic Metabolic Panel Stat Complete Blood Count AUTO DIFF Stat Test Serum,Qual Stat 06/11/21 21:10 CT kidney ureter bladder (KUB) Stat Discontinued Medications Ceftriaxone Sodium 1,000 mg/ (Sodium Chloride) 100 mls @ 200 mls/hr IV NOW ONE Stop: 06/11/21 21:11 Last Infusion: 06/11/21 21:45 Dose: 0 mls/hr Documented by: Admin: 06/11/21 21:17 Dose: 200 mls/hr Documented by: SHARRI Vital Signs Vital signs: Vital Signs - 8 hr 06/11/21 20:20 06/11/21 22:16 Temperature 96.4 F L Pulse Rate 85 86 Respiratory Rate 18 16 Blood Pressure 149/92 H 138/88 Pulse Oximetry 99 100 Medical Decision Making Lab Data Lab results reviewed: Yes I reviewed the patient's lab results. Result diagrams: 06/11/21 20:45 06/11/21 20:45 Labs: Lab Results 06/11/21 06/11/21 06/11/21 Range/Units 20:45 20:45 20:45 WBC 14.1 H (4.5-11.0) X10^3/uL RBC 4.24 (4.0-5.2) X10^6/uL Hgb 13.7 (12.0-16.0) g/dL Hct 39.4 (36-46) % MCV 93.0 (80-100) fL MCH 32.4 (26-34) PG MCHC 34.8 (30-36) % RDW 12.5 (11.6-14.8) % Plt Count 316 (150-400) X10^3/uL Neut % (Auto) 78.2 H (50-75) % Lymph % (Auto) 14.0 L (25-40) % [place] % (Auto) 7.1 (3-14) % Eos % (Auto) 0.5 L (2-4) % Baso % (Auto) 0.2 (0-2) % Neut # (Auto) 23336 H (0864-6508) /uL Lymph # (Auto) 2000 (5967-5932) /uL [place] # (Auto) 1000 H (0-900) /uL Eos # (Auto) 100 (0-450) /uL Baso # (Auto) 0 (0-100) /uL Sodium 137 (137-145) mmol/L Potassium 3.5 (3.4-5.1) mmol/L Chloride 103 (98-107) mmol/L Carbon Dioxide 26 (22-32) mmol/L BUN 8 (7-17) mg/dL Creatinine 0.59 (0.52-1.04) mg/dL Estimated GFR > 60.0 (>60) mL/min BUN/Creatinine Ratio 13.6 (6-22) Glucose 116 H (70-100) mg/dL Calcium 9.0 (8.4-10.2) mg/dL Serum , Qual Negative (Negative) Imaging Data CT scan - abdomen/pelvis: Radiologist's Impression: [place] [address] CT Scan Report Signed Patient: Karina Mcleod MR#: [id number] : 1990 Acct:[id number] Age/Sex: 30 / F Date of Service: 06/11/21 Loc: ED Accession Number: [id number] ?? Procedure: CT kidney ureter bladder (KUB) Ordering Provider: Azam Sanders D.O. PROCEDURE:? CT KIDNEY URETER BLADDER (KUB) ? INDICATIONS:? L flank pain eval for stone ? TECHNIQUE:? Axial sections were acquired from the lung bases to the pubic symphysis.? Coronal and sagittal reformats were performed.? For radiation dose reduction, the following was used: ?automated exposure control, adjustment of mA and/or kV according to patient size.? ? COMPARISON:? [facility], CT, CT ABDOMEN PELVIS W CON, 12/21/2018, 9:31. ? FINDINGS:? Image quality:? Excellent.? ? Lung bases:? Unremarkable.? ? Heart:? No significant findings. ? URINARY: Right Kidney: ? No stones or hydronephrosis.? Right Ureter:? No hydroureter.? ? Left Kidney: ? No stones or hydronephrosis. Left Ureter:? No hydroureter.? ? Bladder:? Diffuse, mild thickening of the urinary bladder wall which could be due to underdistention versus cystitis. ? ABDOMEN: Liver:? Diffuse fatty infiltration of the liver. Gallbladder:? Unremarkable.? ? Biliary ducts:? Unremarkable.? ? Pancreas:? Unremarkable.? ? Spleen:? Unremarkable.? ? Adrenal Glands:? Unremarkable.? ? ? Stomach and Bowel:? Stomach, small bowel loops, and colon are unremarkable.? Peritoneum:? No abnormal intraperitoneal fluid.? No free air.? ? Ventral Wall: ? No hernia.? Abdominal Nodes:? No enlarged retroperitoneal or mesenteric lymph nodes.? Vessels:? Aorta and inferior vena cava are normal in size.? ? PELVIS: Pelvic Organs:? Unremarkable.? ? Pelvic Nodes: Unremarkable. Miscellaneous: No inguinal hernias are seen. ? ? ? Bones:? Unremarkable. ? IMPRESSION: ? 1. No renal stone or hydronephrosis. ? 2. Diffuse urinary bladder wall thickening which could be due to underdistention versus cystitis.? Recommend correlation with urinalysis data. ? 3.? Appendix is normal. ? 4. No free fluid or free air. ? 5. No dilated loops of bowel. ? 6. Hepatic steatosis.? Dictated by: Khloe Parikh MD, PhD on 06/11/2021 at 21:35 ? ? Approved by: Khloe Parikh MD, PhD on 06/11/2021 at 21:37 MDM Narrative Medical decision making narrative: Review the patient's urinalysis today does show a nitrite positive urine. She does have a leukocytosis which could be explained by the urinary tract infection. She does have left-sided flank discomfort. Is afebrile. Is nontoxic appearing. Is tolerating oral intake. CT scan does not show any signs of kidney stone. Given her presentation will treat her for pyelonephritis. She was instructed not to take the Macrobid that she was given earlier today but to start taking the medication that I prescribed to her. She was also given Rocephin here in the ER. No indication for immersion to the hospital. She was given return precautions and follow-up instructions. She expressed understanding and agreement. Discharge Plan Departure Patient Disposition: Home Clinical Impression: Pyelonephritis Instructions: DI for Kidney Infection Activity Restrictions/Additional Instructions: I recommend that you do not take the medication that was prescribed to you earlier today. This medicine is called Nitrofurantonin/Macrobid. I am going to place you on a medicine called Bactrim. Please take it as directed. Return to the emergency department for any new or worsening symptoms. Prescriptions: New sulfamethoxazole-trimethoprim [Bactrim DS] 800-160 mg tablet 1 tab PO Q12H 14 Days Qty: 28 0RF No Action nitrofurantoin monohyd/m-cryst [Macrobid] 100 mg capsule 100 mg PO Q12H 5 Days Qty: 10 0RF Rx Instructions: must administer with a meal/food phenazopyridine [Pyridium] 200 mg tablet 200 mg PO TID 0 Days Qty: 6 0RF escitalopram oxalate 10 mg tablet 10 mg PO DAILY Qty: 30 2RF Referrals: Zaid Horn ARNP [Primary Care Provider] -
--- NOTE | 2021-06-11 21:10 | DI.CT.S_ITS ---
PROCEDURE: CT KIDNEY URETER BLADDER (KUB) INDICATIONS: L flank pain eval for stone TECHNIQUE: Axial sections were acquired from the lung bases to the pubic symphysis. Coronal and sagittal reformats were performed. For radiation dose reduction, the following was used: automated exposure control, adjustment of mA and/or kV according to patient size. COMPARISON: [facility], CT, CT ABDOMEN PELVIS W CON, 12/21/2018, 9:31. FINDINGS: Image quality: Excellent. Lung bases: Unremarkable. Heart: No significant findings. URINARY: Right Kidney: No stones or hydronephrosis. Right Ureter: No hydroureter. Left Kidney: No stones or hydronephrosis. Left Ureter: No hydroureter. Bladder: Diffuse, mild thickening of the urinary bladder wall which could be due to underdistention versus cystitis. ABDOMEN: Liver: Diffuse fatty infiltration of the liver. Gallbladder: Unremarkable. Biliary ducts: Unremarkable. Pancreas: Unremarkable. Spleen: Unremarkable. Adrenal Glands: Unremarkable. Stomach and Bowel: Stomach, small bowel loops, and colon are unremarkable. Peritoneum: No abnormal intraperitoneal fluid. No free air. Ventral Wall: No hernia. Abdominal Nodes: No enlarged retroperitoneal or mesenteric lymph nodes. Vessels: Aorta and inferior vena cava are normal in size. PELVIS: Pelvic Organs: Unremarkable. Pelvic Nodes: Unremarkable. Miscellaneous: No inguinal hernias are seen. Bones: Unremarkable. IMPRESSION: 1. No renal stone or hydronephrosis. 2. Diffuse urinary bladder wall thickening which could be due to underdistention versus cystitis. Recommend correlation with urinalysis data. 3. Appendix is normal. 4. No free fluid or free air. 5. No dilated loops of bowel. 6. Hepatic steatosis. Dictated by: Khloe Parikh MD, PhD on 06/11/2021 at 21:35 Approved by: Khloe Parikh MD, PhD on 06/11/2021 at 21:37
[2021-06-11 21:15] LABS: Pregnancy Test Serum,Qual Negative (Negative)
[2021-06-11] MEDS: cefTRIAXone 1,000 MG in SODIUM CHLORIDE 0.9% 100 ML 200 ML IV (21:17)
[2021-06-11 22:16] VITALS: BP 138/88; PULSE 86; RESP 16; O2SAT 100
== END 2021-06-11 22:16 | disposition home or self-care (01) ==
PROVIDERS: Emergency Provider Emergency Medicine; PCP Registered Nurse
DX: N12 Tubulo-interstitial nephritis, not specified as acute or chronic (principal); F17.200 Nicotine dependence, unspecified, uncomplicated; R30.0 Dysuria
CPT/HCPCS: 36415; 74176; 80048; 81002; 84703; 85025; 87077; 87086; 87186; 96365; 99284; J0696

== ENCOUNTER → 2022-04-07 10:02 | Outpatient (CLI) | payer OTHER, MEDICAID, SELFPAY ==
[2022-04-07 11:05] LABS: Influenza A - CEPHEID Flu A NEGATIVE (NEGATIVE); Influenza B - CEPHEID Flu B NEGATIVE (NEGATIVE); Respiratory Syncytial Virus Negative (Negative)
[2022-04-07 11:31] LABS: COVID-19 CEPHEID 4-PLEX PCR Negative (Negative)
== END ==
PROVIDERS: Visit Provider Nurse Practitioner Family
DX: J06.9 Acute upper respiratory infection, unspecified (principal); Z20.822 Contact with and (suspected) exposure to COVID-19
CPT/HCPCS: 0241U; 81025

== ENCOUNTER → 2022-12-26 16:49 | Outpatient (CLI) | payer OTHER, MEDICAID, SELFPAY | PROVIDERS: Visit Provider Physician Assistant | DX: L03.90 Cellulitis, unspecified (principal) | CPT/HCPCS: 87070; 87075; 87077; 87147; 87186; 87205 ==

== ENCOUNTER 2023-12-25 06:21 | Emergency (ER) | payer SELFPAY ==
[2023-12-25 06:29] VITALS: BP 143/90; PULSE 102; RESP 16; TEMP 36.6; O2SAT 95; BMI 30.2
--- NOTE | 2023-12-25 06:29 | ED.GENADULT ---
HPI - General Adult General Chief complaint: Eye Problems Stated complaint: eye infection Time Seen by Provider: 12/25/23 06:26 Source: patient Mode of arrival: Ambulatory Limitations: no limitations History of Present Illness HPI narrative: 33-year-old female here for evaluation of bilateral eye irritation and drainage and crusting in the morning. She is having sinus congestion the sore throat. Related Data Previous Rx's Medication Instructions Recorded doxycycline hyclate 100 mg capsule 100 mg PO BID #14 caps 12/26/22 erythromycin 5 mg/gram (0.5 %) eye 0.5 inch EYE-BOTH TID 2 days #3.5 12/25/23 ointment grams Allergies Allergy/AdvReac Type Severity Reaction Status Date / Time No Known Drug Allergies Allergy Verified 12/26/22 16:33 Review of Systems Eyes Eyes: Reports system reviewed and no additional complaints, except as documented ENT Ears, Nose, Mouth, and Throat: Reports system reviewed and no additional complaints, except as documented Patient History Medical History Screening examination for STD (sexually transmitted disease) Physical exam Folliculitis Family History Family/Other Cancer Social History Smoking Status: Current some day smoker Smoking Status: Current some day smoker alcohol intake frequency: 3 or more drinks per day Substance Use Type: marijuana Exam HENMT Head: normal to inspection and normocephalic Ears: external ears normal Mouth: moist mucous membranes Eyes Other: Bilateral conjunctivitis Medical Decision Making [facility] Narrative Medical decision making narrative: History and physical exam was consistent with bilateral conjunctivitis. Will treat with antibiotics. Prescription was sent to the pharmacy of her choice. Discharge Plan Departure Patient Disposition: Home Clinical Impression: Conjunctivitis Instructions: Conjunctivitis Activity Restrictions/Additional Instructions: I do recommend that you continue with the antihistamine such as Claritin or Zyrtec. You can purchase this [id number]. He was a antibiotic ointment as directed. Be sure you are washing your hands frequently. Return to the emergency department for new symptoms. Prescriptions: New erythromycin 5 mg/gram (0.5 %) ointment 0.5 inch EYE-BOTH TID 2 Days Qty: 3.5 2RF No Action doxycycline hyclate 100 mg capsule 100 mg PO BID Qty: 14 0RF Referrals: Miscellaneous,Doctor, MD [Primary Care Provider] - Stand Alone Forms: Patient Portal/API
== END 2023-12-25 06:35 | disposition home or self-care (01) ==
PROVIDERS: Emergency Provider Emergency Medicine
DX: H10.9 Unspecified conjunctivitis (principal); J02.9 Acute pharyngitis, unspecified
CPT/HCPCS: 99281